=== PATIENT | male | born 1970 | race Two or more races ===

== ENCOUNTER 2023-12-08 20:25 | Emergency (ER) | payer OTHER ==
[~2023-12-08] VITALS: Ht 182.9 cm; Wt 100.0 kg
[2023-12-08 20:57] VITALS: O2SAT 98
[2023-12-08 22:36] LABS: CHLORIDE 100 mEq/L (98-107); POTASSIUM 3.9 mEq/L (3.5-5.1); SODIUM 135 mEq/L (136-145)
[2023-12-08 22:37] LABS: CALCIUM 9.1 mg/dL (8.7-10.4); CARBON DIOXIDE 29 mEq/L (21-32)
[2023-12-08 22:40] LABS: DIFFERENTIAL COMMENT 1; HEMATOCRIT. 43.6 % (36.0-48.0); HEMOGLOBIN. 14.5 g/dL (12.0-16.0); MEAN CORPUSCULAR HEMOGLOBIN 28.4 pg (28.0-32.0); MEAN CORPUSCULAR HGB CONC 33.3 g/dL (31.0-37.0); MEAN CORPUSCULAR VOLUME 85.2 fL (81.0-99.0); MEAN PLATELET VOLUME 9.5 fl (7.4-10.4); PLATELET 124 x1000/uL (130-400); RED BLOOD CELL COUNT 5.11 mill/uL (4.2-5.4); RED CELL DISTRIBUTION WIDTH 13.7 % (11.6-14.6); WHITE BLOOD COUNT 7.1 x1000/uL (4.5-11.0)
[2023-12-08 22:42] LABS: CREATININE 1.1 mg/dL (0.6-1.0); GLUCOSE 133 mg/dL (70-105); UREA NITROGEN BLOOD 17 mg/dL (9-23)
[2023-12-08 22:43] LABS: TROPONIN I HIGH SENSITIVITY 18 ng/L (3.0-34)
[2023-12-08 22:44] LABS: ALANINE AMINOTRANSFERASE 37 IU/L (10-49); ALBUMIN 4.8 g/dL (3.2-4.8); ASPARTATE AMINOTRANSFERASE 32 IU/L (<34); BILIRUBIN DIRECT 0.8 mg/dL (<=3.0); BILIRUBIN TOTAL 3.8 mg/dL (0.1-1.0); PROTEIN TOTAL 7.5 g/dL (6.0-8.3)
[2023-12-08] MEDS: KETOROLAC 30MG/ML VIAL IV ONE (23:00)
[2023-12-08] MEDS: ONDANSETRON HCL 4MG/2ML INJ IV ONE (23:00)
[2023-12-08] MEDS: SODIUM CHLORIDE 0.9% 1,000 ML IV ONE (23:00)
[2023-12-08 23:30] LABS: PLATELET ESTIMATE SLIGHTLY DECREASED
[2023-12-09 00:29] VITALS: BP 127/79; PULSE 84; RESP 16; TEMP 36.66960; O2SAT 100
== END 2023-12-09 00:31 | disposition home or self-care (01) ==
LOC: EDSEX 21:28 → ER 21:28
DX: T67.5XXA Heat exhaustion, unspecified, initial encounter (principal); R50.9 Fever, unspecified; R11.2 Nausea with vomiting, unspecified; X58.XXXA Exposure to other specified factors, initial encounter; Y93.89 Activity, other specified; Y92.89 Other specified places as the place of occurrence of the external cause; Y99.8 Other external cause status
CPT/HCPCS: 99284; 96374; 96375; 80076; 80048; 83690; 85025; 84484; 36415; J1885; J2405; J7030